=== PATIENT | male | born 1985 | race African-American/Black ===

== ENCOUNTER 2023-02-27 17:10 | Inpatient (IN) | payer MEDICAID ==
[~2023-02-27] VITALS: Ht 182.9 cm; Wt 68.0 kg
[2023-02-27] MEDS ORDERED: ZOLPIDEM TARTRATE 10 MG TABLET PO PRN (22:00)
[2023-02-27] MEDS ORDERED: HALOPERIDOL 5 MG TABLET PO PRN (22:00)
[2023-02-27] MEDS ORDERED: LORazepam 2 MG TABLET PO PRN (22:00)
[2023-02-27 22:02] VITALS: BP 102/75; PULSE 70; RESP 20; TEMP 97.6
[2023-02-28 00:08] VITALS: BP 115/78; PULSE 73; RESP 17; TEMP 97.6
[2023-02-28 09:51] VITALS: PULSE 54; RESP 17; TEMP 97.1; O2SAT 99
[2023-02-28] MEDS ORDERED: MAG HYDROX/AL HYDROX/SIMETH ES 30 ML SUSPENSION UDCUP PO PRN (14:00)
[2023-02-28] MEDS ORDERED: CloNIDine HCL 0.1 MG TABLET PO PRN (14:00)
[2023-02-28] MEDS ORDERED: ONDANSETRON HCL 4 MG TABLET PO PRN (14:00)
[2023-02-28] MEDS ORDERED: MAGNESIUM HYDROXIDE SUSPENSION 30 ML UDCUP PO PRN (14:00)
[2023-02-28] MEDS ORDERED: LOPERAMIDE HCL 2 MG CAPSULE PO PRN (14:00)
[2023-02-28] MEDS ORDERED: PETROLATUM,WHITE 28 GM JELLY TP PRN (14:00)
[2023-02-28] MEDS ORDERED: ACETAMINOPHEN 325 MG TABLET PO PRN (14:00)
[2023-02-28] MEDS ORDERED: DOCUSATE SODIUM 100 MG CAPSULE PO PRN (14:00)
[2023-02-28] MEDS ORDERED: ALBUTEROL SULFATE HFA 90 MCG/PUFF 8 GM INHALER IH PRN (14:00)
[2023-02-28] MEDS ORDERED: NICOTINE 14 MG/24 HOUR PATCH TD PRN (14:00)
[2023-02-28] MEDS ORDERED: GuaiFENesin/D-METHORPHAN [SUGAR-FREE] 200-20MG/10 ML SYRUP UDCUP PO PRN (14:00)
[2023-02-28] MEDS ORDERED: IBUPROFEN 400 MG TABLET PO PRN (14:00)
[2023-02-28 14:01] VITALS: BP 103/78; PULSE 60; RESP 17; TEMP 97.5; O2SAT 97
[2023-02-28 20:50] VITALS: BP 103/60; PULSE 78; RESP 19; TEMP 97.7; O2SAT 98
[2023-03-01 08:48] VITALS: BP 113/67; PULSE 73; RESP 18; TEMP 97.5; O2SAT 99
[2023-03-01 20:24] VITALS: BP 107/60; PULSE 71; RESP 18; TEMP 98.2; O2SAT 96
[2023-03-02 08:18] VITALS: RESP 18
[2023-03-02 08:32] VITALS: RESP 18
[2023-03-02 20:06] VITALS: BP 109/62; PULSE 81; RESP 18; TEMP 98.2; O2SAT 97
[2023-03-03 08:53] VITALS: BP 112/87; PULSE 80; RESP 17; TEMP 97.8; O2SAT 98
[2023-03-03] MEDS: OLANZapine 5 MG TABLET PO SCH ×2 (12:39→20:36)
[2023-03-03 20:00] VITALS: BP 108/62; PULSE 72; RESP 17; TEMP 98.3; O2SAT 97
[2023-03-04] MEDS: OLANZapine 5 MG TABLET PO SCH ×2 (08:13→21:08)
[2023-03-04] MEDS: MEGESTROL ACETATE 400 MG/10 ML SUSPENSION UDCUP PO SCH (08:13)
[2023-03-04 09:30] VITALS: TEMP 98.2
[2023-03-04 16:37] VITALS: BP 105/65; PULSE 87; RESP 20; TEMP 98; O2SAT 98
[2023-03-04 22:45] VITALS: BP 105/65; PULSE 87; RESP 20; TEMP 98; O2SAT 98
[2023-03-05 08:11] VITALS: BP 97/56; PULSE 73; RESP 17; TEMP 99.2; O2SAT 99
[2023-03-05] MEDS: OLANZapine 5 MG TABLET PO SCH ×2 (08:17→20:20)
[2023-03-05] MEDS: MEGESTROL ACETATE 400 MG/10 ML SUSPENSION UDCUP PO SCH (08:17)
[2023-03-05 20:26] VITALS: BP 111/60; PULSE 77; RESP 19; TEMP 99; O2SAT 99
[2023-03-06] MEDS: OLANZapine 5 MG TABLET PO SCH ×2 (08:06→20:39)
[2023-03-06 08:32] VITALS: BP 95/63; PULSE 69; RESP 18; TEMP 98.7; O2SAT 99
[2023-03-06] MEDS: MEGESTROL ACETATE 400 MG/10 ML SUSPENSION UDCUP PO SCH (09:52)
[2023-03-06 20:10] VITALS: BP 121/69; PULSE 81; RESP 18; TEMP 98.2; O2SAT 96
[2023-03-07] MEDS: MEGESTROL ACETATE 400 MG/10 ML SUSPENSION UDCUP PO SCH (08:05)
[2023-03-07] MEDS: OLANZapine 5 MG TABLET PO SCH ×2 (08:06→20:58)
[2023-03-07 09:00] VITALS: BP 106/60; PULSE 71; RESP 17; TEMP 98.4; O2SAT 99
[2023-03-07 23:30] VITALS: BP 111/66; PULSE 80; RESP 18; TEMP 98; O2SAT 98
[2023-03-08] MEDS: MEGESTROL ACETATE 400 MG/10 ML SUSPENSION UDCUP PO SCH (08:30)
[2023-03-08] MEDS: OLANZapine 5 MG TABLET PO SCH ×2 (08:30→21:05)
[2023-03-08 10:19] VITALS: BP 100/61; PULSE 92; TEMP 98.4
[2023-03-08 22:48] VITALS: BP 118/70; PULSE 71; RESP 18; TEMP 97.9; O2SAT 96
[2023-03-09] MEDS: MEGESTROL ACETATE 400 MG/10 ML SUSPENSION UDCUP PO SCH (08:22)
[2023-03-09] MEDS: OLANZapine 5 MG TABLET PO SCH (08:22)
[2023-03-09 10:35] VITALS: BP 119/58; PULSE 74; TEMP 97.9
[2023-03-09 20:44] VITALS: BP 102/61; PULSE 85; RESP 17; TEMP 98.4; O2SAT 100
[2023-03-09] MEDS: OLANZapine 7.5 MG TABLET PO SCH (20:57)
[2023-03-10 08:11] VITALS: BP 117/72; PULSE 76; RESP 17; TEMP 98.3; O2SAT 100
[2023-03-10] MEDS: MEGESTROL ACETATE 400 MG/10 ML SUSPENSION UDCUP PO SCH (08:27)
[2023-03-10] MEDS: OLANZapine 7.5 MG TABLET PO SCH ×2 (08:27→20:40)
[2023-03-10 20:11] VITALS: BP 103/62; PULSE 79; RESP 18; TEMP 98.4; O2SAT 97
[2023-03-11 07:52] LABS: BASOPHILS % (AUTO) 0.5 % (0.0-2.0); EOSINOPHILS % (AUTO) 1.9 % (1.0-6.0); HEMATOCRIT 40.7 % (41-53); HEMOGLOBIN 13.8 g/dL (13.5-17.5); LYMPHOCYTES # (AUTO) 2.9 K/uL (1.0-4.8); LYMPHOCYTES % (AUTO) 44.5 % (22.0-44.0); MEAN CORPUSCULAR HEMOGLOBIN 31.2 pg (26.0-34.0); MEAN CORPUSCULAR VOLUME 92 fL (80-100); MONOCYTES # (AUTO) 0.6 K/uL (0.1-1.0); MONOCYTES % (AUTO) 8.5 % (2.0-9.0); NEUTROPHILS # (AUTO) 2.9 K/uL (1.8-7.7); NEUTROPHILS % (AUTO) 44.6 % (40.0-70.0); PLATELET COUNT (AUTO) 223 K/uL (150-450); RED BLOOD CELL COUNT(AUTO) 4.42 MIL/uL (4.50-5.90); RED CELL DISTRIBUTION WIDTH 13.1 % (11.5-14.5)
[2023-03-11] MEDS: MEGESTROL ACETATE 400 MG/10 ML SUSPENSION UDCUP PO SCH (08:01)
[2023-03-11] MEDS: OLANZapine 7.5 MG TABLET PO SCH ×2 (08:01→20:42)
[2023-03-11 08:20] LABS: ALANINE AMINOTRANSFERASE 45 U/L (12-78); ALBUMIN 3.2 g/dL (3.4-5.0); ALKALINE PHOSPHATASE 69 U/L (46-116); ANION GAP 8 mmol/L (8-16); ASPARTATE AMINOTRANSFERASE 20 U/L (15-37); BILIRUBIN,TOTAL 0.3 mg/dL (0.1-1.0); CALCIUM, TOTAL 8.9 mg/dL (8.8-10.5); CARBON DIOXIDE 26 mmol/L (22-29); CHLORIDE 106 mmol/L (98-107); CHOL/HDL RATIO 2.5 (4.2-7.3); CHOLESTEROL 190 mg/dL (131-200); FREE T4 (FREE THYROXINE) 0.76 ng/dL (0.76-1.46); GLOMERULAR FILTR. RATE CALC > 60 mL/min (>60); GLUCOSE,RANDOM 102 mg/dL (70-110); HDL CHOLESTEROL 75 mg/dL (40-60); LDL CHOL (CALC.) 107 mg/dL (0-130); POTASSIUM 4.5 mmol/L (3.5-5.1); SODIUM SERUM 140 mmol/L (136-145); TOTAL PROTEIN, SERUM 6.9 g/dL (6.4-8.2); TRIGLYCERIDES 38 mg/dL (15-150)
[2023-03-11 08:27] VITALS: BP 100/60; PULSE 81; RESP 17; TEMP 98.9; O2SAT 97
[2023-03-11 20:17] VITALS: BP 114/60; PULSE 70; RESP 18; TEMP 97.8; O2SAT 98
[2023-03-12] MEDS: MEGESTROL ACETATE 400 MG/10 ML SUSPENSION UDCUP PO SCH (08:03)
[2023-03-12] MEDS: OLANZapine 7.5 MG TABLET PO SCH ×2 (08:03→20:54)
[2023-03-12 08:27] VITALS: BP 106/62; PULSE 87; RESP 17; TEMP 97.9; O2SAT 100
[2023-03-12 20:12] VITALS: BP 114/60; PULSE 66; RESP 18; TEMP 97.9; O2SAT 97
[2023-03-13] MEDS: OLANZapine 7.5 MG TABLET PO SCH ×2 (08:09→20:53)
[2023-03-13] MEDS: MEGESTROL ACETATE 400 MG/10 ML SUSPENSION UDCUP PO SCH (08:09)
[2023-03-13 08:33] VITALS: BP 104/60; PULSE 79; RESP 17; TEMP 98.8; O2SAT 96
[2023-03-13 20:11] VITALS: BP 110/60; PULSE 79; RESP 19; TEMP 98; O2SAT 99
[2023-03-14] MEDS: OLANZapine 7.5 MG TABLET PO SCH (08:22)
[2023-03-14] MEDS: MEGESTROL ACETATE 400 MG/10 ML SUSPENSION UDCUP PO SCH (08:22)
[2023-03-14 08:33] VITALS: BP 100/56; PULSE 86; RESP 17; TEMP 98.6; O2SAT 97
[2023-03-14] MEDS ORDERED: OLAN7.5T22 PO (13:31)
[2023-03-14] MEDS ORDERED: METF-1211 PO (17:05)
[2023-03-14] MEDS ORDERED: CHOL400T56 PO (17:05)
[2023-03-14] MEDS ORDERED: MEGE400O17 PO (17:08)
== END 2023-03-14 18:00 | disposition home or self-care (01) | DRG 750 ==
LOC: B2S 20:57 → B3A 02-28 20:59
PROVIDERS: ADMIT Psychiatry & Neurology Psychiatry; ATTEND Psychiatry & Neurology Psychiatry
DX: F20.0 Paranoid schizophrenia (principal); F10.10 Alcohol abuse, uncomplicated; G47.00 Insomnia, unspecified; F99 Mental disorder, not otherwise specified
CPT/HCPCS: 80053; 80061; 84439; 84443; 85025